=== PATIENT | female | born 1990 | race African-American/Black ===

== ENCOUNTER 2016-08-17 10:39 | Emergency (ER) | payer SELFPAY ==
[2016-08-17 10:45] VITALS: BP 95/40
--- NOTE | 2016-08-17 10:55 | ER Document Report ---
ED Medical Screen (RME) - General Stated Complaint: TOOTH PAIN Mode of Arrival: Ambulatory Information source: Patient Notes: Patient complains of dental pain. [place]. Patient reports pain for the past 2 days. Patient took tramadol this morning without relief of her symptoms. I have greeted and performed a rapid initial assessment of this patient. A comprehensive ED assessment and evaluation of the patient, analysis of test results and completion of the medical decision making process will be conducted by additional ED providers. TRAVEL OUTSIDE OF THE [place] IN LAST 30 DAYS: No Physical Exam - Vital signs Vitals: Temp Pulse Resp BP Pulse Ox 98.7 F 76 14 95/40 L 99 08/17/16 10:43 08/17/16 10:43 08/17/16 10:43 08/17/16 10:43 08/17/16 10:43 - General General appearance: Appears well, Alert In distress: None Notes: No facial swelling Course - Vital Signs Vital signs: Temp Pulse Resp BP Pulse Ox 98.7 F 76 14 95/40 L 99 08/17/16 10:43 08/17/16 10:43 08/17/16 10:43 08/17/16 10:43 08/17/16 10:43
--- NOTE | 2016-08-17 11:20 | ER Document Report ---
HPI - HPI Patient complains to provider of: dental pain Onset: Other - 2-3 days Quality of pain: Achy Severity: Severe Pain Level: 5 Context: Patient presents to the emergency department with complaints of dental pain due to presumed teeth coming in. She also complains pain is giving her earache and migraines. She reports she vomited once yesterday. Patient is visiting from [place]. She reports she will be going back there for dental care. Denies fever and diarrhea. Associated Symptoms: Headache, Vomiting Exacerbated by: Denies Relieved by: Denies Similar symptoms previously: No Recently seen / treated by doctor: No - REPRODUCTIVE LMP: 07/30/16 - DERM Skin Color: Normal Past Medical History - General Information source: Patient Last Menstrual Period: July - Social History Smoking Status: Current Every Day Smoker Cigarette use (# per day): Yes Frequency of alcohol use: None Drug Abuse: None Family History: None Patient has suicidal ideation: No Patient has homicidal ideation: No - Medical History Medical History: Negative Renal/ Medical History: Denies: Hx Peritoneal Dialysis Past Surgical History: Reports: Other - Hernia repair as a child Vertical Provider Document - CONSTITUTIONAL Agree With Documented VS: Yes Exam Limitations: No Limitations General Appearance: WD/WN, No Apparent Distress - INFECTION CONTROL TRAVEL OUTSIDE OF THE [place] IN LAST 30 DAYS: No - HEENT HEENT: Atraumatic, Normocephalic. negative: Pharyngeal Exudate, Pharyngeal Erythema, Tympanic Membrane Red, Tympanic Membrane Bulging Mouth Diagram: 1 - Complains of bilateral lower dental pain. Opens mouth wide clear voice no evidence of infection no swelling no erythema no discharge no ludwigs, no evidence of infection 2 - c/o pain - NECK Neck: Normal Inspection, Supple. negative: Lymphadenopathy-Left, Lymphadenopathy-Right - RESPIRATORY Respiratory: Breath Sounds Normal, No Respiratory Distress O2 Sat by Pulse Oximetry: 99 - CARDIOVASCULAR Cardiovascular: Regular Rate - MUSCULOSKELETAL/EXTREMETIES Musculoskeletal/Extremeties: MAEW, FROM - NEURO Level of Consciousness: Awake, Alert, Appropriate Motor/Sensory: No Motor Deficit - DERM Integumentary: Warm, Dry Course - Re-evaluation Re-evalutation: 08/17/16 11:24 Patient looks good, nontoxic looking, instructed on the importance of follow-up with dental so she returns to [place]. Instructed to take Motrin or Tylenol for the pain - Vital Signs Vital signs: Temp Pulse Resp BP Pulse Ox 98.7 F 76 14 95/40 L 99 08/17/16 10:43 08/17/16 10:43 08/17/16 10:43 08/17/16 10:43 08/17/16 10:43 Discharge - Discharge Clinical Impression: Pain, dental Condition: Stable Disposition: HOME, SELF-CARE Instructions: Toothache (COUNTS INCLUDE 234 BEDS AT THE [facility]), Penicillin V K (COUNTS INCLUDE 234 BEDS AT THE [facility]) Additional Instructions: *You have been evaluated for dental pain *Take medication as prescribed *Take ibuprofen or Tylenol for the pain as indicated *Follow up with a dentist upon returning to [place] *Return to ED for worsening condition, changes, needs Prescriptions: Penicillin V Potassium [Penicillin Vk 500 mg Tablet] 500 mg PO BID #20 tablet
== END 2016-08-17 11:20 | disposition home or self-care (01) ==
LOC: ER 10:39
DX: K08.89 Other specified disorders of teeth and supporting structures (principal); G43.909 Migraine, unspecified, not intractable, without status migrainosus; H92.09 Otalgia, unspecified ear; F17.210 Nicotine dependence, cigarettes, uncomplicated
CPT/HCPCS: 99282